=== PATIENT | female | born 1965 | race Caucasian/White ===

== ENCOUNTER → 2024-06-23 10:49 | Outpatient (REF) | payer BC, SELFPAY | LOC: WDC 10:49 | PROVIDERS: ATTENDING PHYSICIAN Physician Assistant Medical | DX: Z12.31 Encounter for screening mammogram for malignant neoplasm of breast (principal) | CPT/HCPCS: 77063; 77067 ==

== ENCOUNTER → 2025-03-01 15:13 | Outpatient (REF) | payer BC, SELFPAY | LOC: RAD 15:13 | PROVIDERS: ATTENDING PHYSICIAN Urology; FAMILY PHYSICIAN Family Medicine | DX: M62.89 Other specified disorders of muscle (principal); N30.10 Interstitial cystitis (chronic) without hematuria; N94.10 Unspecified dyspareunia; N95.8 Other specified menopausal and perimenopausal disorders | CPT/HCPCS: 76770; 76856 ==

== ENCOUNTER 2025-03-31 09:24 | Emergency (ER) | payer BC, SELFPAY ==
[2025-03-31 09:28] VITALS: BP 141/99
--- NOTE | 2025-03-31 10:43 | ED.GENMED ---
History of Present Illness
General
Chief Complaint: Flank Pain
Source: patient
Exam Limitations: none
Time Seen by Provider: 03/31/25 10:26
Nursing documentation reviewed up to this point in time: agreed with
History of Present Illness
History of Present Illness:
Patient is a 59 female who presents to the ER for evaluation of left flank pain. Patient reports she started suddenly with left flank pain about 1 hour prior to arrival. She does feel that it radiates to her left abdomen. She does feel dizzy and
nauseous with the pain. Does not take anything for pain. She does have chronic interstitial cystitis and is followed by urology Dr. Willow Barraza . denies any recent UTI symptoms
Past History
Past History
ED Past Medical History: Other (UTI)
ED Past Surgical History: Gynecological (Discharge)
Social History
Tobacco: Non-smoker
Employment: Employed (Teacher)
Review of Systems
Review of Systems
Allergies reviewed?: Yes
All Other Systems: ROS reviewed and negative except as documented in HPI and ROS
Constitutional: Reports no symptoms; Denies fever, fatigue or chills
Respiratory: Reports no symptoms
Cardiac: Reports no symptoms
ABD/GI: Reports nausea; Denies vomiting
: Reports flank pain
Musculoskeletal: Reports no symptoms
Skin: Reports no symptoms
Neurological: Reports no symptoms
Psychiatric: Reports no symptoms
Phy Exam
General Physical Exam
General Presentation: no apparent distress
General age: appears stated age
General Skin: warm and dry
General Habitus: normal
General Mental: alert
General Hydration: appears well hydrated
Gastrointestinal Exam
Gastrointestinal Exam: normal bowel sounds, non tender and soft
Neurological Exam
Neurological Exam: alert and oriented x3
Musculoskeletal Exam
Musculoskeletal Exam: full ROM
Skin Exam
Skin Exam: normal color and warm/dry
Psychiatric Exam
Psychiatric Exam: normal mood/affect
Course
Orders/Labs/Results
Orders:
Orders
03/31/25 10:44
IV Insert/Care/Rem.- Treatment PRN
0.9% Sodium Chloride 1000 ml [Nss] 1,000 ml IV BOLUS
Ketorolac [Toradol] 15 mg IV NOW STA
Ondansetron Injectable [Zofran] 4 mg IV NOW STA
03/31/25 10:45
CT Abd/pel Without Iv Or Oral Urgent
Comment:
Reason For Exam: left flank pain
Test Result ONCE
03/31/25 11:03
Complete Blood Count/With Diff Urgent
Comprehensive Metabolic Panel Urgent
HCG, Serum Qualitative Screen Urgent
Urinalysis Reflex To Culture Urgent
Date Specimen was Collected: 03/31/25
Time Specimen was Collected: 11:02
03/31/25 12:38
HYDROmorphone [Dilaudid] 0.5 mg IV NOW STA
03/31/25 12:46
Vital Signs- Treatment ONCE
Frequency: Once
Comment: once
03/31/25 13:20
Morphine Sulfate 4 mg IV NOW STA
Abnormal Lab Results
03/31/25
11:03
Abs Immat Gran (auto) 0.2 H 10^3/uL
(0-0.05)
Absolute Neuts (auto) 7.5 H 10^3/uL
(1.4-6.5)
Immature Gran % 2.1 H %
(0-0.5)
Neutrophils % 77.3 H %
(42.2-75.2)
Lymphocytes % 14.3 L %
(20.5-51.1)
Glucose 132 H mg/dl
(70-99)
03/31/25 11:03
03/31/25 11:03
Vital Signs
Initial and Last Documented VS:
Initial Vital Signs
Temp Pulse Resp BP Pulse Ox
97.9 F 53 18 141/99 100
03/31/25 09:28 03/31/25 09:28 03/31/25 09:28 03/31/25 09:28 03/31/25 09:28
Last Documented Vital Signs
Temp Pulse Resp BP Pulse Ox
97.9 F 55 15 140/87 99
03/31/25 09:28 03/31/25 12:53 03/31/25 12:53 03/31/25 12:53 03/31/25 12:53
MDM/Problems Addressed
Differential Diagnosis Includes:
Not limited to renal colic less likely UTI
MDM/Problems Addressed:
Patient present with sudden onset of left flank pain. Patient presents awake alert no acute distress afebrile normal white count normal chemistries negative infection urine. CAT scan shows a 2 mm calcification at the left UVJ likely an
obstructing calculus. Patient was given Toradol fluids did feel better however is starting to feel pain again we will give 1 dose of IV Dilaudid plan for discharge home. Patient does have urology Dr. Howard for f/u. Patient denies any fevers and
is afebrile with a normal white count unremarkable urine
*Radiology
Radiology exam reviewed: radiology read reviewed
*Critical Care Note
Total Time (30-74mins, 75-104mins- exclusive of procedures): Not Applicable
ED Attending Note
-
Portions of this chart may have been created with voice recognition software.� Occasional wrong word or��sound alike� substitutions may have occurred due to the inherent limitations of voice recognition software.
Discharge Plan
Departure
Patient Disposition: Home (Routine Discharge)
Date of Disposition: 03/31/25
Time of Disposition: 12:45
Patient with high blood pressure during this ER visit?: Yes
Covid-19: Not Applicable
Discharge Problem:
Renal colic on left side
Instructions: Kidney Stones (DC), How to Strain Your Urine, BLOOD PRESSURE, Narcotic Pain Medication
Prescriptions:
New
tamsulosin [Flomax] 0.4 mg capsule
0.4 mg PO DAILY Qty: 7 0RF
oxycodone 5 mg tablet
5 mg PO Q6H PRN (Reason: Pain) Qty: 10 0RF
No Action
levothyroxine [Synthroid] 75 mcg Tablet
75 mcg PO DAILY
sulfamethoxazole-trimethoprim [Bactrim DS] 800-160 mg tablet
1 tab PO BID 7 Days Qty: 14 0RF
phenazopyridine [Pyridium] 200 mg tablet
200 mg PO TID PRN (Reason: pain) Qty: 6 0RF
Referrals:
Willow Barraza, DO [Active] -
UNKNOWN - PT DOES,NOT KNOW [Family Provider] -
Activity Restrictions/Additional Instructions:
As discussed you have a 2 mm kidney stone at the entrance to your bladder junction.
Increase your fluids. You may continue to alternate between ibuprofen and Tylenol for pain however if needed a prescription for narcotic pain occasions sent to pharmacy. Take only as directed. This is a narcotic and will cause constipation. It
is recommended you take cket-itc-vefrvci laxative(such as Senokot) while taking this medicine along with a stool softener. No driving or drinking alcohol while taking this medicine. Strain all urine
Follow-up with your urologist in the next several days call Wednesday to make an appointment. Return if any worsening of symptoms if increased pain, fever chills nausea vomiting.
Interventions
Interventions:
*Risk Screen - Suicide Last Done: 03/31/25 09:28
*General Assessment Last Done: 03/31/25 10:59
*Neglect/Abuse Screening Last Done: 03/31/25 09:28
GC-Efatpj-Dtnrtbrdyi Assessment Last Done: 03/31/25 11:15
ED- Neurological Assessment Last Done: 03/31/25 11:15
ED Swallowing Screen Last Done: 03/31/25 11:15
Discharge Date and Time
Print Language: HEBREW
[2025-03-31] MEDS: NSS 1000 IV (10:57)
[2025-03-31] MEDS: TORADOL 15 MG IV (10:57)
[2025-03-31] MEDS: ZOFRAN 4 MG IV (10:58)
[2025-03-31 10:59] VITALS: BMI 23.9
[2025-03-31 11:10] LABS: % Basophils 0.4 % (0-2); % Eosinophils 0.3 % (0-6); % Immature Granulocytes 2.1 % (0-0.5); % Lymphocytes 14.3 % (20.5-51.1); % Monocytes 5.6 % (1.7-9.3); % Neutrophils 77.3 % (42.2-75.2); Absolute Immature Granulocytes 0.2 10^3/uL (0-0.05); Absolute Lymphocytes 1.4 10^3/uL (1.2-3.4); Absolute Monocytes 0.5 10^3/uL (0.1-0.6); Absolute Neutrophils 7.5 10^3/uL (1.4-6.5); Hematocrit 38.1 % (37.0-47.0); Hemoglobin 13.2 g/dL (12.0-16.0); Mean Corp Hgb Conc. 34.6 g/dL (33.0-37.0); Mean Corpuscular Hgb 30.8 pg (27.0-31.0); Mean Platelet Volume 9.3 fL (7.4-10.4); Nucleated Red Blood Cells % 0 %; Platelet Count 215 10^3/uL (130-400); Red Blood Cell Count 4.28 10^6/uL (4.20-5.40); White Blood Cell Count 9.7 10^3/uL (4.8-10.8)
[2025-03-31 11:31] LABS: ALT (SGPT) 20 U/L (0-35); AST (SGOT) 30 U/L (14-36); Albumin 4.4 g/dl (3.5-5.0); Alkaline Phosphatase 68 U/L (38-126); Blood Urea Nitrogen 15 mg/dl (7-17); Calcium 9.2 mg/dl (8.4-10.2); Carbon Dioxide 29 mmol/L (22-30); Chloride 103 mmol/L (98-107); Estimated Creatinine Clearance 64 ml/min; Glucose 132 mg/dl (70-99); Potassium 4.1 mmol/L (3.5-5.1); Sodium 138 mmol/L (135-145); Total Protein 7.3 g/dl (6.3-8.2); eGFR > 60.00
[2025-03-31 11:50] LABS: HCG, Serum Qualitative Screen Negative
[2025-03-31 12:02] LABS: Urine Albumin Negative (Neg - Trace); Urine Bilirubin Negative (Negative); Urine Character Clear (Clear); Urine Color Yellow; Urine Glucose Negative (Negative); Urine Ketone Negative (Negative); Urine Leukocyte Negative (Negative); Urine Nitrite Negative (Negative); Urine Occult Blood Negative (Negative); Urine Specific Gravity 1.015 (<1.030); Urine Urobilinogen Negative (Neg - 1+)
[2025-03-31] MEDS: DILAUDID 0.5 MG IV (12:42)
[2025-03-31 12:53] VITALS: BP 140/87
[2025-03-31] MEDS: MORPHINE SULFATE 4 MG IV (13:30)
== END 2025-03-31 14:32 | disposition home or self-care (01) ==
LOC: EMR 09:24
PROVIDERS: Nurse Practitioner; EMERGENCY PHYSICIAN Emergency Medicine
DX: N23 Unspecified renal colic (principal); Z87.440 Personal history of urinary (tract) infections
CPT/HCPCS: 96374; 96375; 99284; 74176; 80053; 81003; 84703; 85025

== ENCOUNTER → 2025-06-27 11:21 | Outpatient (REF) | payer BC, SELFPAY | LOC: WDC 11:21 | PROVIDERS: ATTENDING PHYSICIAN Nurse Practitioner Family; FAMILY PHYSICIAN Family Medicine | DX: Z12.31 Encounter for screening mammogram for malignant neoplasm of breast (principal) | CPT/HCPCS: 77063; 77067 ==

== ENCOUNTER → 2025-09-25 12:58 | Outpatient (REF) | payer BC, SELFPAY | LOC: WDC 12:58 | PROVIDERS: ATTENDING PHYSICIAN Nurse Practitioner Family; FAMILY PHYSICIAN Family Medicine | DX: R92.2 Inconclusive mammogram (principal) | CPT/HCPCS: 76641 ==